=== PATIENT | female | born 1950 | race Hispanic/Latino ===

== ENCOUNTER 2020-12-12 14:48 | Emergency (ER) | payer MEDICARE, OTHER ==
[2020-12-12] MEDS ORDERED: Ketorolac Tromethamine 30 MG/ML VIAL ONE (16:34)
== END 2020-12-12 16:31 | disposition home or self-care (01) ==
LOC: CSHERS 14:48
DX: M54.5 Low back pain (principal); M54.6 Pain in thoracic spine; E11.9 Type 2 diabetes mellitus without complications; E78.5 Hyperlipidemia, unspecified; E78.00 Pure hypercholesterolemia, unspecified; M19.90 Unspecified osteoarthritis, unspecified site
CPT/HCPCS: 96372; 99283; J1885

== ENCOUNTER 2020-12-14 13:26 | Emergency (ER) | payer MEDICARE, OTHER ==
[2020-12-14 14:10] LABS: Bilirubin Neg (Negative); Blood, Urine Negative (Negative); Clarity Clear (Clear); Glucose, Urine (Dipstick) 100 mg/dL (Negative); Ketone, Urine Negative (Negative); Leukocyte 25 (Negative); Nitrite Negative (Negative); Protein, Urine (Dipstick) Negative (Neg-Trace); Specific Gravity, Urine 1.005 (1.002-1.036); Urobilinogen Normal mg/dL (Less than 2)
[2020-12-14 14:23] LABS: #Eosinphils 0.3 10x3/uL (0.0-0.5); #Monocytes 0.4 10x3/uL (0.0-1.1); %Basophils 0.5 % (0.0-2.0); %Eosinophils 4.3 % (0.0-6.0); %Lymphocytes 20.8 % (18.0-47.0); %Monocytes 5.8 % (0.0-10.0); %Neutrophils 67.9 % (40.0-75.0); Mean Corpuscular Hemoglobin 29.3 pg (27.0-33.0); Mean Corpuscular Volume 91.6 fl (81.6-98.3); Mean Platelet Volume 10.1 fl (7.4-10.4); Platelet Count 355 10x3/uL (150-450); RBC Distribution Width 12.9 % (11.5-14.5); Red Blood Cell (RBC) Count 4.43 10x6/uL (3.90-5.03); White Blood Cell (WBC) Count 7.4 10x3/uL (3.5-10.5)
[2020-12-14] MEDS ORDERED: Ketorolac Tromethamine 15 MG/ML VIAL ONE (14:25)
[2020-12-14 14:30] LABS: Bacteria/HPF None Seen HPF (None Seen); RBC/HPF None Seen HPF (0-3); Squamous Epithelial 0-3 HPF (0-3); WBC/HPF None Seen HPF (0-3)
[2020-12-14 14:38] LABS: ALT (SGPT) 13 U/L (8-55); AST (SGOT) 21 U/L (5-34); Albumin 4.3 g/dL (3.4-4.8); Anion Gap 15 mmol/L (10-20); BUN (Urea Nitrogen) 9 mg/dL (9.8-20.1); Bilirubin, Total 0.8 mg/dL (0.2-1.2); Calc. Creatinine Clearance 0 mL/min (70-130); Carbon Dioxide 27 mmol/L (23-31); Chloride 103 mmol/L (98-107); Globulin 2.9 g/dL (2.4-3.5); Glucose 86 mg/dL (80-115); Potassium 4.2 mmol/L (3.5-5.1); Protein, Total 7.2 g/dL (5.8-8.1); Sodium 141 mmol/L (136-145)
[2020-12-14 14:48] LABS: Alkaline Phosphatase 70 U/L (40-110)
== END 2020-12-14 16:30 | disposition home or self-care (01) ==
LOC: CSHERS 13:26
DX: M54.9 Dorsalgia, unspecified (principal); I10 Essential (primary) hypertension; E11.9 Type 2 diabetes mellitus without complications; E78.00 Pure hypercholesterolemia, unspecified; M19.90 Unspecified osteoarthritis, unspecified site
CPT/HCPCS: 71045; 71275; 74174; 80053; 81003; 81015; 84484; 85025; 85379; 93005; 96374; J1885

== ENCOUNTER 2022-02-26 14:03 | Emergency (ER) | payer MEDICARE, MEDICAID ==
[2022-02-26] MEDS ORDERED: Lidocaine 5% Patch TD SCH (15:30)
[2022-02-26] MEDS ORDERED: Ketorolac Tromethamine 30 MG/ML VIAL ONE (15:36)
[2022-02-26] MEDS ORDERED: Fentanyl 100 MCG/2 ML VIAL ONE (15:37)
== END 2022-02-26 18:42 | disposition home or self-care (01) ==
LOC: CSHERS 14:03
DX: S22.061A Stable burst fracture of T7-T8 vertebra, initial encounter for closed fracture (principal); S32.029A Unspecified fracture of second lumbar vertebra, initial encounter for closed fracture; I10 Essential (primary) hypertension; E78.00 Pure hypercholesterolemia, unspecified; M19.90 Unspecified osteoarthritis, unspecified site; E11.9 Type 2 diabetes mellitus without complications; W17.89XA Other fall from one level to another, initial encounter; Y92.002 Bathroom of unspecified non-institutional (private) residence as the place of occurrence of the external cause; Y93.E1 Activity, personal bathing and showering
CPT/HCPCS: 72128; 72131; 96374; 96375; J1885; J3010

== ENCOUNTER 2022-03-26 10:28 | Outpatient (CLI) | payer OTHER, MEDICAID | END 2022-03-26 10:29 | disposition home or self-care (01) | LOC: CSHRAD 10:28 | PROVIDERS: ATTEND Neurological Surgery | DX: S22.001D Stable burst fracture of unspecified thoracic vertebra, subsequent encounter for fracture with routine healing (principal); S22.069D Unspecified fracture of T7-T8 vertebra, subsequent encounter for fracture with routine healing; S32.029D Unspecified fracture of second lumbar vertebra, subsequent encounter for fracture with routine healing; S22.060D Wedge compression fracture of T7-T8 vertebra, subsequent encounter for fracture with routine healing; S32.021D Stable burst fracture of second lumbar vertebra, subsequent encounter for fracture with routine healing | CPT/HCPCS: 72072 ==

== ENCOUNTER 2022-04-04 06:21 | Emergency (ER) | payer OTHER, MEDICAID ==
[2022-04-04] MEDS ORDERED: Orphenadrine Citrate 60 MG/2 ML VIAL IM SCH (07:00)
[2022-04-04] MEDS ORDERED: Ketorolac Tromethamine 30 MG/ML VIAL ONE (07:51)
== END 2022-04-04 08:10 | disposition home or self-care (01) ==
LOC: CSHERS 06:21
DX: R51.9 Headache, unspecified (principal); I10 Essential (primary) hypertension; E78.00 Pure hypercholesterolemia, unspecified; E11.9 Type 2 diabetes mellitus without complications; Z79.899 Other long term (current) drug therapy
CPT/HCPCS: 70450; 72125; 96372; J1885; J2360

== ENCOUNTER 2023-07-11 12:51 | Emergency (ER) | payer OTHER ==
[2023-07-11] MEDS ORDERED: Acetaminophen 500 MG TAB ONE (13:27)
[2023-07-11 13:51] LABS: #Monocytes 0.7 10x3/uL (0.0-1.1); #Neutrophils 8.4 10x3/uL (1.5-8.4); %Basophils 0.4 % (0.0-2.0); %Eosinophils 0.2 % (0.0-6.0); %Lymphocytes 15.6 % (18.0-47.0); %Monocytes 6.5 % (0.0-10.0); Hematocrit 38.2 % (34.9-44.5); Hemoglobin 12.6 g/dL (12.0-15.5); Mean Corpuscular Hemoglobin 29.4 pg (27.0-33.0); Platelet Count 298 10x3/uL (150-450); RBC Distribution Width 13.2 % (11.5-14.5); Red Blood Cell (RBC) Count 4.29 10x6/uL (3.90-5.03); White Blood Cell (WBC) Count 10.8 10x3/uL (3.5-10.5)
[2023-07-11 14:02] LABS: CRP (Inflammatory) 3.51 mg/dL (= or < 0.5)
[2023-07-11 14:19] LABS: Anion Gap 15 mmol/L (10-20); BUN (Urea Nitrogen) 15 mg/dL (9.8-20.1); Calc. Creatinine Clearance 0 mL/min (70-130); Calcium 9.9 mg/dL (7.8-10.44); Carbon Dioxide 23 mmol/L (23-31); Chloride 106 mmol/L (98-107); Estimated GFR 90; Glucose 107 mg/dL (83-110); Potassium 4.4 mmol/L (3.5-5.1); Sodium 140 mmol/L (136-145)
[2023-07-11] MEDS ORDERED: Naproxen 500 MG TAB ONE (16:35)
[2023-07-12 13:35] LABS: Uric Acid 3.4 mg/dL (2.6-6.0)
== END 2023-07-11 16:48 | disposition home or self-care (01) ==
LOC: CSHERS 12:51
DX: M25.472 Effusion, left ankle (principal); D72.829 Elevated white blood cell count, unspecified
CPT/HCPCS: 80048; 84550; 85025; 86140

== ENCOUNTER 2023-09-21 16:35 | Emergency (ER) | payer MEDICARE, OTHER ==
[2023-09-21] MEDS ORDERED: HYDROcodone/Acetaminophen 5/325 mg Tablet ONE ×2 (18:40→22:27)
== END 2023-09-21 20:30 | disposition home or self-care (01) ==
LOC: CSHERS 16:35
DX: S52.572A Other intraarticular fracture of lower end of left radius, initial encounter for closed fracture (principal); S62.002A Unspecified fracture of navicular [scaphoid] bone of left wrist, initial encounter for closed fracture; I10 Essential (primary) hypertension; E11.9 Type 2 diabetes mellitus without complications; W19.XXXA Unspecified fall, initial encounter

== ENCOUNTER 2023-09-22 15:56 | Emergency (ER) | payer MEDICARE, OTHER | END 2023-09-22 17:07 | disposition home or self-care (01) | LOC: CSHERS 15:56 | DX: Z46.89 Encounter for fitting and adjustment of other specified devices (principal); I10 Essential (primary) hypertension; E11.9 Type 2 diabetes mellitus without complications | CPT/HCPCS: 99282 ==

== ENCOUNTER 2025-06-11 17:06 | Emergency (ER) | payer MEDICARE, OTHER ==
[~2025-06-11 17:06] MED LIST: Iopamidol 370 76% 100 ML VIAL ONE
[2025-06-11] MEDS ORDERED: Ketorolac Tromethamine 30 MG (1 mL) VIAL ONE (17:46)
[2025-06-11] MEDS ORDERED: Ondansetron PF 4 MG/2 ML Vial ONE (17:46)
[2025-06-11 17:51] LABS: #Basophils 0.03 10x3/uL (0.0-0.2); #Eosinophils Less than 0.03 10x3/uL (0.0-0.5); #Monocytes 0.52 10x3/uL (0.0-1.1); #Neutrophils 11.04 10x3/uL (1.5-8.4); %Basophils 0.2 % (0.0-2.0); %Eosinophils 0.1 % (0.0-6.0); %Lymphocytes 12.7 % (18.0-47.0); %Monocytes 3.9 % (0.0-10.0); %Neutrophils 82.7 % (40.0-75.0); Hematocrit 38.1 % (34.9-44.5); Hemoglobin 12.5 g/dL (12.0-15.5); Mean Corpuscular Hemoglobin 29.2 pg (27.0-33.0); Mean Corpuscular Volume 89.0 fL (81.6-98.3); Platelet Count 389 10x3/uL (150-450); Red Blood Cell (RBC) Count 4.28 10x6/uL (3.90-5.03); White Blood Cell (WBC) Count 13.35 10x3/uL (3.5-10.5)
[2025-06-11 18:08] LABS: Troponin I Less than 0.010 ng/mL (< 0.028)
[2025-06-11 18:33] LABS: Glucose, Urine (Dipstick) 250 mg/dL (Negative); Leukocyte 500 (Negative); Protein, Urine (Dipstick) 15 mg/dl (Neg-Trace); Specific Gravity, Urine 1.015 (1.005-1.030)
[2025-06-11 18:44] LABS: Bacteria/HPF 2+ HPF (None Seen); CAUTI Indications for Culture Alt mental st,lethar; RBC/HPF 0-3 HPF (0-3)
[2025-06-11 18:45] LABS: Urine Culture Reflex No No
[2025-06-11 19:02] LABS: ALT (SGPT) 8 U/L (Less than 34); AST (SGOT) 22 U/L (11-34); Albumin 3.4 g/dL (3.1-4.5); Alkaline Phosphatase 80 U/L (40-110); Anion Gap 9 mmol/L (10-20); BUN (Urea Nitrogen) 26 mg/dL (9.8-20.1); Bilirubin, Total 0.2 mg/dL (0.3-1.2); Calc. Creatinine Clearance 0 mL/min (70-130); Calcium 9.3 mg/dL (7.8-10.44); Carbon Dioxide 28 mmol/L (23-31); Chloride 107 mmol/L (98-107); Globulin 3.2 g/dL (2.4-3.5); Glucose 97 mg/dL (83-110); Lipase 14 U/L (8-78); Magnesium 1.7 mg/dL (1.6-2.6); Potassium 4.3 mmol/L (3.5-5.1); Sodium 140 mmol/L (136-145)
[2025-06-11] MEDS ORDERED: cefTRIAXone (ROCEPHIN) 1 GM VIAL ONE (21:26)
[2025-06-11 22:51] LABS: Troponin I Less than 0.010 ng/mL (< 0.028)
== END 2025-06-11 22:57 | disposition home or self-care (01) ==
LOC: CSHERS 17:06
DX: F03.90 Unspecified dementia, unspecified severity, without behavioral disturbance, psychotic disturbance, mood disturbance, and anxiety (principal); N39.0 Urinary tract infection, site not specified; M48.56XA Collapsed vertebra, not elsewhere classified, lumbar region, initial encounter for fracture; M48.54XA Collapsed vertebra, not elsewhere classified, thoracic region, initial encounter for fracture; I10 Essential (primary) hypertension; E11.9 Type 2 diabetes mellitus without complications; Z79.899 Other long term (current) drug therapy; Z55.6 Problems related to health literacy
CPT/HCPCS: 70450; 71045; 71275; 74177; 81001; 83690; 83735; 83880; 84484 ×2; 93005; J0696; J1885; J2270; J2405; Q9967; 36415; 51701; 80053; 84443; 85025; 96374; 96375

== ENCOUNTER 2025-07-16 13:13 | Emergency (ER) | payer MEDICARE, OTHER ==
[2025-07-16 14:23] LABS: #Basophils 0.04 10x3/uL (0.0-0.2); #Eosinophils 0.07 10x3/uL (0.0-0.5); #Monocytes 0.52 10x3/uL (0.0-1.1); #Neutrophils 7.69 10x3/uL (1.5-8.4); %Basophils 0.4 % (0.0-2.0); %Eosinophils 0.8 % (0.0-6.0); %Lymphocytes 9.8 % (18.0-47.0); %Monocytes 5.6 % (0.0-10.0); %Neutrophils 83.1 % (40.0-75.0); Hematocrit 37.3 % (34.9-44.5); Hemoglobin 12.0 g/dL (12.0-15.5); Mean Corpuscular Hemoglobin 30.0 pg (27.0-33.0); Mean Corpuscular Volume 93.3 fL (81.6-98.3); Platelet Count 312 10x3/uL (150-450); Red Blood Cell (RBC) Count 4.00 10x6/uL (3.90-5.03); White Blood Cell (WBC) Count 9.26 10x3/uL (3.5-10.5)
[2025-07-16 14:43] LABS: ALT (SGPT) 12 U/L (Less than 34); AST (SGOT) 20 U/L (11-34); Albumin 3.5 g/dL (3.1-4.5); Alkaline Phosphatase 75 U/L (40-110); Anion Gap 11 mmol/L (10-20); BUN (Urea Nitrogen) 18 mg/dL (9.8-20.1); Bilirubin, Total 0.3 mg/dL (0.3-1.2); Calc. Creatinine Clearance 0 mL/min (70-130); Calcium 9.3 mg/dL (7.8-10.44); Carbon Dioxide 27 mmol/L (23-31); Chloride 106 mmol/L (98-107); Globulin 3.2 g/dL (2.4-3.5); Glucose 111 mg/dL (83-110); Potassium 4.1 mmol/L (3.5-5.1); Sodium 140 mmol/L (136-145)
[2025-07-16 14:50] LABS: Troponin I Less than 0.010 ng/mL (< 0.028)
[2025-07-16] MEDS ORDERED: Iopamidol 370 76% 100 ML VIAL ONE (15:10)
[2025-07-16] MEDS ORDERED: Ketorolac Tromethamine 30 MG (1 mL) VIAL ONE (16:25)
== END 2025-07-16 19:00 | disposition home or self-care (01) ==
LOC: CSHERS 13:13
DX: J18.9 Pneumonia, unspecified organism (principal); S22.069A Unspecified fracture of T7-T8 vertebra, initial encounter for closed fracture; S22.089A Unspecified fracture of T11-T12 vertebra, initial encounter for closed fracture; S32.029A Unspecified fracture of second lumbar vertebra, initial encounter for closed fracture; I10 Essential (primary) hypertension; E11.9 Type 2 diabetes mellitus without complications; Z55.6 Problems related to health literacy; X58.XXXA Exposure to other specified factors, initial encounter
CPT/HCPCS: 71045; 71275; 80053; 83605; 83880; 84484; 85025; 87040; 87428; 93005; 96374; 99284; J1885; Q9967; 36415

== ENCOUNTER 2025-08-01 12:39 | Emergency (ER) | payer MEDICARE, OTHER ==
[2025-08-01] MEDS ORDERED: Acetaminophen/Codeine 30-300mg Tablet ONE (13:49)
== END 2025-08-01 15:20 | disposition home or self-care (01) ==
LOC: CSHERS 12:39
DX: J11.1 Influenza due to unidentified influenza virus with other respiratory manifestations (principal); E11.9 Type 2 diabetes mellitus without complications; I10 Essential (primary) hypertension
CPT/HCPCS: 71046; 87428